=== PATIENT | female | born 1955 | race Caucasian/White ===

== ENCOUNTER 2018-12-23 08:03 | Day surgery (SDC) ==
[~2018-12-23 08:03] MED LIST: BETADINE OPTH PREP OP PRN; BRIMONIDINE TARTRATE 0.2% OPTH SOL OP PRN; LIDOCAINE 1% 20 ML MDV ID STA; ZOFRAN 4 MG/2 ML IVP ONE
[2018-12-23] MEDS: TETRACAINE 0.5% UNIT-DOSE OP PRN ×2 (09:15→09:47)
[2018-12-23] MEDS: CYCLOGYL 2% OPTH OP PRN ×3 (09:15→09:25)
[2018-12-23] MEDS ORDERED: VERSED ONE (10:00)
[2018-12-23] MEDS ORDERED: ZOFRAN 4 MG/2 ML ONE (10:00)
[2018-12-23] MEDS ORDERED: SUBLIMAZE ONE (10:00)
[2018-12-23] MEDS: DEX-MOXI-KETOR OPTH INJ 1/0.5/0.4 MG/ML IO ONE ×2 (10:01→10:07)
[2018-12-23] MEDS: BSS WITH EPINEPHRINE OP ONE ×2 (10:01→10:07)
[2018-12-23] MEDS: LIDOCAINE 1%/PHENYLEPHRINE 1.5% BSS (SURGERY) INTRAOCULA ONE ×2 (10:01→10:07)
[2018-12-23 14:42] VITALS: TEMP 98
[2018-12-24 15:50] VITALS: BP 126/66
== END 2018-12-23 11:30 | disposition home or self-care (01) ==
LOC: SURG 08:03
PROVIDERS: ATTEND Ophthalmology
DX: H25.11 Age-related nuclear cataract, right eye (principal)

== ENCOUNTER 2019-01-20 09:24 | Day surgery (SDC) ==
[2019-01-20] MEDS: BETADINE OPTH PREP OP PRN ×2 (10:00→10:29)
[2019-01-20] MEDS: CYCLOGYL 2% OPTH OP PRN ×4 (10:00→10:11)
[2019-01-20] MEDS: TETRACAINE 0.5% UNIT-DOSE OP PRN ×2 (10:00→10:28)
[2019-01-20] MEDS ORDERED: LIDOCAINE 1%/PHENYLEPHRINE 1.5% BSS (SURGERY) INTRAOCULA ONE (10:07)
[2019-01-20] MEDS ORDERED: BRIMONIDINE TARTRATE 0.2% OPTH SOL OP PRN (10:07)
[2019-01-20] MEDS ORDERED: DEX-MOXI-KETOR OPTH INJ 1/0.5/0.4 MG/ML IO ONE (10:07)
[2019-01-20] MEDS ORDERED: LIDOCAINE 1% 20 ML MDV ID STA (10:07)
[2019-01-20] MEDS ORDERED: BSS WITH EPINEPHRINE OP ONE (10:07)
[2019-01-20] MEDS ORDERED: ZOFRAN 4 MG/2 ML IVP ONE (10:07)
[2019-01-20] MEDS ORDERED: ZOFRAN 4 MG/2 ML ONE (10:30)
[2019-01-20] MEDS ORDERED: SUBLIMAZE ONE (10:30)
[2019-01-20] MEDS ORDERED: VERSED ONE (10:30)
[2019-01-20 13:14] VITALS: TEMP 98.4
[2019-01-22 14:48] VITALS: BP 121/78
== END 2019-01-20 11:30 | disposition home or self-care (01) ==
LOC: SURG 09:24
PROVIDERS: ATTEND Ophthalmology
DX: H25.12 Age-related nuclear cataract, left eye (principal)